=== PATIENT | male | born 1945 | race Caucasian/White ===

== ENCOUNTER 2019-05-22 03:19 | Inpatient (IN) | payer MEDICARE ==
[~2019-05-22] VITALS: Ht 182.9 cm; Wt 83.6 kg
--- NOTE | 2019-05-22 03:31 | NUR ---
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
[2019-05-22 04:12] LABS: BASOPHILS # (AUTO) 0.03 x10^3/uL (0-0.1); BASOPHILS % (AUTO) 0 % (0-1); EOSINOPHILS # (AUTO) 0.13 x10^3/uL (0-0.4); EOSINOPHILS % (AUTO) 1 % (1-7); LYMPHOCYTES # (AUTO) 2.66 x10^3/uL (1-3.4); LYMPHOCYTES % (AUTO) 19 % (22-44); MD NO; MEAN CORPUSCULAR HEMOGLOBIN 31.2 pg (27.5-34.5); MEAN CORPUSCULAR HGB CONC 33.7 g/dL (33.2-36.2); MEAN CORPUSCULAR VOLUME 92.4 fL (81-97); MEAN PLATELET VOLUME 8.1 fL (7.4-10.4); MONOCYTES # (AUTO) 0.73 x10^3/uL (0.2-0.8); MONOCYTES % (AUTO) 5 % (2-9); NEUTROPHILS # (AUTO) 10.28 x10^3/uL (1.8-6.8); NEUTROPHILS % (AUTO) 74 % (42-75); PLATELET COUNT 235 x10^3/uL (130-400); RED BLOOD COUNT 5.14 x10^6/uL (4.38-5.82); RED CELL DISTRIBUTION WIDTH 13.8 % (9.4-14.8)
[2019-05-22 04:21] LABS: ALANINE AMINOTRANSFERASE 27 U/L (12-78); ALBUMIN 3.9 g/dL (3.4-5.0); ANION GAP 8 mmol/L (5-15); CALCIUM 8.7 mg/dL (8.5-10.1); CHLORIDE 108 mmol/L (98-107); CREATININE 1.01 mg/dL (0.7-1.3)
[2019-05-22 04:25] LABS: ALKALINE PHOSPHATASE 111 U/L (45-117); BILIRUBIN,TOTAL 0.4 mg/dL (0.2-1.0); TOTAL PROTEIN 7.1 g/dL (6.4-8.2); TROPONIN I < 0.015 ng/mL (0.000-0.045)
[2019-05-22] MEDS ORDERED: SODIUM CHLORIDE FLUSH 10ML SYR IVF ONE (04:30)
[2019-05-22] MEDS ORDERED: SODIUM CHLORIDE 0.9% 1,000ML IVBOLUS ONE (04:30)
--- NOTE | 2019-05-22 04:36 | NUR ---
IVF initiated, education provided. Pt resting supine, reports frequent reoccuring events of nausea w/ "dizziness", anxious at times. Vitals remain stable, SBP 101, denies pain.
--- NOTE | 2019-05-22 05:55 | NUR ---
Pt resting on gurney, vitals stable. 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 Pt denies pain. Symptoms persist and are unchanged. at bedside. Admit orders noted, POC discussed w/ pt and , bother verbalize understandign and agreement.
--- NOTE | 2019-05-22 06:17 | NUR ---
Report called to RN.
[2019-05-22 06:32] VITALS: BP 114/72
[2019-05-22] MEDS ORDERED: SODIUM CHLORIDE 0.9% 1,000 ML IV SCH ×2 (08:10→20:00)
[2019-05-22] MEDS ORDERED: PROMETHAZINE 25 MG/ML, 1ML IM PRN (08:30)
[2019-05-22] MEDS ORDERED: BISACODYL 10 MG SUPP PR PRN (08:30)
[2019-05-22] MEDS ORDERED: OXYcodone IR 5MG TABLET PO PRN (08:30)
[2019-05-22] MEDS ORDERED: POLYETHYLENE GLYCOL 17 GM PACKET PO PRN (08:30)
[2019-05-22] MEDS ORDERED: ONDANSETRON 2MG/ML, 2ML IVPush PRN (08:30)
[2019-05-22] MEDS ORDERED: ONDANSETRON ODT 4 MG PO PRN (08:30)
[2019-05-22] MEDS ORDERED: hydrALAzine 20 MG/ML, 1ML IVPush PRN (08:30)
[2019-05-22] MEDS ORDERED: DOCUSATE 100 MG CAPSULE PO PRN (08:30)
[2019-05-22] MEDS ORDERED: ACETAMINOPHEN 325 MG TABLET PO PRN (08:30)
[2019-05-22] MEDS ORDERED: morphine SULFATE 10 MG/ML, 1ML IVPush PRN (08:30)
[2019-05-22] MEDS: CLOPIDOGREL 75 MG TABLET PO SCH (08:35)
[2019-05-22] MEDS: NICOTINE 14MG/24 HR PATCH.TD24 TD SCH (08:35)
[2019-05-22] MEDS: HEPARIN 5,000 UNITS/ML, 1ML SQ SCH ×2 (08:35→16:51)
[2019-05-22] MEDS ORDERED: LORazepam 2 MG/ML, 1ML IVPush ONE (09:00)
[2019-05-22 12:27] VITALS: BP 126/78
[2019-05-22 13:36] LABS: FREE T4 (FREE THYROXINE) 1.08 ng/dL (0.76-1.46)
[2019-05-22 13:40] LABS: HEMOGLOBIN A1C 6.2 % (4.2-6.3)
[2019-05-22 13:43] LABS: MICROSCOPIC NOT IND
[2019-05-22 13:49] LABS: CULTURE INDICATED? NO
[2019-05-22 18:43] VITALS: BP 115/72
[2019-05-22] MEDS ORDERED: ATORVASTATIN 20 MG TABLET PO SCH (21:00)
[2019-05-22] MEDS ORDERED: TEMAZEPAM 15 MG CAPSULE PO PRN (22:30)
[2019-05-23] MEDS: HEPARIN 5,000 UNITS/ML, 1ML SQ SCH ×2 (01:06→08:35)
[2019-05-23 01:12] VITALS: BP 118/76
[2019-05-23 05:41] LABS: BASOPHILS # (AUTO) 0.07 x10^3/uL (0-0.1); BASOPHILS % (AUTO) 1 % (0-1); EOSINOPHILS # (AUTO) 0.25 x10^3/uL (0-0.4); EOSINOPHILS % (AUTO) 3 % (1-7); LYMPHOCYTES # (AUTO) 3.01 x10^3/uL (1-3.4); LYMPHOCYTES % (AUTO) 32 % (22-44); MD NO; MEAN CORPUSCULAR HEMOGLOBIN 30.3 pg (27.5-34.5); MEAN CORPUSCULAR HGB CONC 33.1 g/dL (33.2-36.2); MEAN CORPUSCULAR VOLUME 91.6 fL (81-97); MEAN PLATELET VOLUME 8.6 fL (7.4-10.4); MONOCYTES # (AUTO) 0.72 x10^3/uL (0.2-0.8); MONOCYTES % (AUTO) 8 % (2-9); NEUTROPHILS # (AUTO) 5.28 x10^3/uL (1.8-6.8); NEUTROPHILS % (AUTO) 57 % (42-75); PLATELET COUNT 162 x10^3/uL (130-400); RED BLOOD COUNT 5.24 x10^6/uL (4.38-5.82); RED CELL DISTRIBUTION WIDTH 13.7 % (9.4-14.8)
[2019-05-23 05:54] LABS: CHLORIDE 115 mmol/L (98-107)
[2019-05-23 06:02] LABS: ALANINE AMINOTRANSFERASE 23 U/L (12-78); ALBUMIN 3.2 g/dL (3.4-5.0); ALKALINE PHOSPHATASE 98 U/L (45-117); BILIRUBIN,TOTAL 0.4 mg/dL (0.2-1.0); CALCIUM 8.7 mg/dL (8.5-10.1); CHOL/HDL RATIO 3.1; CHOLESTEROL, TOTAL 120 mg/dL (140-239); CREATININE 0.88 mg/dL (0.7-1.3); HDL CHOL % 33 % (26-37); HDL CHOLESTEROL (DIRECT) 39 mg/dL (40-60); LDL CHOLESTEROL,CALCULATED 60 mg/dL (54-169); LDL/HDL RATIO 1.5 (0.5-3.0); TOTAL PROTEIN 6.4 g/dL (6.4-8.2); TRIGLYCERIDES 107 mg/dL (50-200); VLDL CHOLESTEROL 21 mg/dL (0-25)
[2019-05-23 06:36] LABS: ANION GAP 6 mmol/L (5-15)
[2019-05-23 06:41] VITALS: BP 147/77
[2019-05-23 07:00] VITALS: BP 139/60
[2019-05-23] MEDS: CLOPIDOGREL 75 MG TABLET PO SCH (08:35)
[2019-05-23] MEDS: NICOTINE 14MG/24 HR PATCH.TD24 TD SCH (08:35)
[2019-05-23] MEDS ORDERED: ATOR40TA PO (12:48)
[2019-05-23] MEDS ORDERED: CLOP75TA52 PO (12:48)
[2019-05-23] MEDS ORDERED: ATOR20TA PO (12:49)
[2019-05-23 12:56] VITALS: BP 137/81
== END 2019-05-23 16:38 | disposition home or self-care (01) | DRG 316 ==
LOC: ED 05:26 → EDIP 05:27 → 5SO 06:21 → DCLOUNGE 05-23 16:12
PROVIDERS: ADMIT Internal Medicine; ATTEND Internal Medicine
DX: I95.9 Hypotension, unspecified (principal); R55 Syncope and collapse; R00.1 Bradycardia, unspecified; R42 Dizziness and giddiness; E78.00 Pure hypercholesterolemia, unspecified; E78.5 Hyperlipidemia, unspecified; F17.210 Nicotine dependence, cigarettes, uncomplicated; I73.9 Peripheral vascular disease, unspecified; Z79.02 Long term (current) use of antithrombotics/antiplatelets; Z85.46 Personal history of malignant neoplasm of prostate; Z90.79 Acquired absence of other genital organ(s); Z95.820 Peripheral vascular angioplasty status with implants and grafts; Z90.49 Acquired absence of other specified parts of digestive tract
CPT/HCPCS: 36415; 70551; 71045; 80053; 80061; 81003; 83036; 83735; 84439; 84443; 84484; 85025; 87040; 93005; 93306; 93880; G0378; J1644; J2060; J7030